=== PATIENT | male | born 1965 | race African-American/Black ===

== ENCOUNTER 2017-08-18 17:37 | Inpatient (IN) | payer OTHER ==
[2017-08-18 18:09] VITALS: BMI 18.3
--- NOTE | 2017-08-18 21:17 | HP ---
CIWA Score - CIWA Score Nausea/Vomitin (Vomiting x 2) Muscle Tremors: 4-Moderate,w/Arms Extend Anxiety: 2 Agitation: 4-Moderately Restless Paroxysmal Sweats: No Perspiration Orientation: 1-Uncertain about Date Tacttile Disturbances: 0-None Auditory Disturbances: 0-None Visual Disturbances: 0-None Headache: 2-Mild CIWA-Ar Total Score: 16 Admission ROS S - HPI Chief Complaint: alcohol withdrawal symptoms Allergies/Adverse Reactions: Allergies Allergy/AdvReac Type Severity Reaction Status Date / Time No Known Allergies Allergy Verified 08/18/17 19:47 History of Present Illness: 52 years old male with a long history of alcohol, marijuana and crack cocaine dependence is seeking admission to detox. Patient reports that his last detox was 2 years ago at [facility] and he has insignificant period of abstinence. He has medical history of Lung Cancer, GERD, hypercholesterolemia, anxiety and depression Exam Limitations: No Limitations - Ebola screening Have you traveled outside of the country in the last 21 days: No Have you had contact with anyone from an Ebola affected area: No Have you been sick,other than usual withdrawal symptoms: No Do you have a fever: No - Review of Systems Constitutional: Chills, Loss of Appetite, Malaise, Night Sweats, Weakness EENT: reports: Blurred Vision (left eye) Respiratory: reports: No Symptoms reported Cardiac: reports: No Symptoms Reported GI: reports: Diarrhea (x 2), Nausea, Poor Appetite, Poor Fluid Intake, Vomiting (x 2), Abdominal cramping : reports: No Symptoms Reported Musculoskeletal: reports: Back Pain Integumentary: reports: Dryness, Flushing Neuro: reports: Tingling, Tremors Endocrine: reports: No Symptoms Reported Hematology: reports: No Symptoms Reported Psychiatric: reports: Agitated, Anxious Other Systems: Reviewed and Negative Patient History - Patient Medical History Hx Anemia: No Hx Asthma: No Hx Chronic Obstructive Pulmonary Disease (COPD): No Hx Cancer: Yes (Lung Cancer - Not on medication now) Hx Cardiac Disorders: No Hx Congestive Heart Failure: No Hx Hypertension: No Hx Hypercholesterolemia: Yes (Not on medication) HX Cerebrovascular Accident: No Hx Seizures: No Hx Diabetes: No Hx Gastrointestinal Disorders: No Hx Liver Disease: No Hx Genitourinary Disorders: Yes (GERD - Not on medication) Hx Sexually Transmitted Disorders: No Hx Renal Disease (ESRD): No Hx Thyroid Disease: No Hx Human Immunodeficiency Virus (HIV): No (Negative 2016) Hx Hepatitis C: No Hx Depression: Yes (Seroquel) Hx Suicide Attempt: No (Denies suicidal and homicidal ideation ) Hx Bipolar Disorder: No Hx Schizophrenia: No Other Medical History: Anxiety - Not on medication - Patient Surgical History Past Surgical History: Yes Hx Neurologic Surgery: No Hx Cataract Extraction: No Hx Cardiac Surgery: No Hx Lung Surgery: No Hx Abdominal Surgery: No Hx Appendectomy: No Hx Cholecystectomy: No Hx Genitourinary Surgery: No Hx Orthopedic Surgery: No Other Surgical History: Removal of right lung 2013 Anesthesia Reaction: No - PPD History Previous Implant?: Yes Documented Results: Negative w/o proof Implanted On Prior [facility] Admission?: No PPD to be Administered?: Yes - Reproductive History Patient is a Female of Child Bearing Age (11 -55 yrs old): No (MALE) - Smoking Cessation Smoking history: Current every day smoker Have you smoked in the past 12 months: Yes Aproximately how many cigarettes per day: 10 Hx Chewing Tobacco Use: No Initiated information on smoking cessation: Yes 'Breaking Loose' booklet given: 08/18/17 - Substance & Tx. History Hx Alcohol Use: Yes Hx Substance Use: Yes Substance Use Type: Cocaine, Marijuana Hx Substance Use Treatment: Yes ([facility]) - Substances Abused Alcohol Route: Oral Frequency: Daily Amount used: LIQUOR- 3 PINTS, BEER- 1 SIX PACK Age of first use: 16 Date of Last Use: 08/18/17 Crack Route: Smoking Frequency: Daily Amount used: 5 BAGS Age of first use: 28 Date of Last Use: 08/17/17 Marijuana/Hashish Route: Smoking Frequency: Daily Amount used: $10 Age of first use: 14 Date of Last Use: 08/18/17 Family Disease History - Family Disease History Family Disease History: CA: Father (Throat Cancer - ), Brother (Stomach cancer - ), Sister (Breast cancer - ) Admission Physical Exam S - Vital Signs Vital Signs: Vital Signs - 24 hr 08/18/17 18:02 Temperature 99.3 F Pulse Rate 105 H Respiratory 18 Rate Blood Pressure 119/70 - Physical General Appearance: Yes: Moderate Distress, Tremorous, Irritable, Sweating, Anxious HEENTM: Yes: EOMI, Normal ENT Inspection, Normal Voice, STEVEN Respiratory: Yes: Lungs Clear, Normal Breath Sounds, No Respiratory Distress Neck: Yes: Supple Breast: Yes: Breast Exam Deferred Cardiology: Yes: Regular Rhythm, Regular Rate, Tachycardia Abdominal: Yes: Normal Bowel Sounds, Soft Genitourinary: Yes: Within Normal Limits Back: Yes: Normal Inspection Extremities: Yes: Tremors Neurological: Yes: Alert, Normal Mood/Affect Integumentary: Yes: Dry Lymphatic: Yes: Within Normal Limits - Diagnostic (1) Alcohol dependence with uncomplicated withdrawal Current Visit: Yes Status: Chronic (2) Cocaine dependence, uncomplicated Current Visit: Yes Status: Chronic (3) Cannabis dependence, uncomplicated Current Visit: Yes Status: Chronic (4) Lung cancer Current Visit: Yes Status: Chronic (5) GERD (gastroesophageal reflux disease) Current Visit: Yes Status: Chronic (6) Hypercholesteremia Current Visit: Yes Status: Chronic (7) Anxiety Current Visit: Yes Status: Chronic (8) Depression Current Visit: Yes Status: Acute Qualifiers: Depression Type: unspecified Qualified Code(s): F32.9 - Major depressive disorder, single episode, unspecified Cleared for Admission [facility] - Detox or Rehab [facility] Level of Care: Medically Managed Detox Regimen/Protocol: Librium [facility] Breath Alcohol Content Breath Alcohol Content: 0.185 Urine Drug Screen - Results Urine Drug Screen Results: THC-Marijuana, JAY-Cocaine
[2017-08-18] MEDS ORDERED: NICOTINE POLACRILEX 2 MG GUM BC PRN (21:30)
[2017-08-18] MEDS ORDERED: IBUPROFEN 400 MG TABLET (FP) PO PRN (21:30)
[2017-08-18] MEDS ORDERED: ACETAMINOPHEN 325 MG TABLET (FP) PO PRN (21:30)
[2017-08-18] MEDS ORDERED: MAGNESIUM HYDROX 2400MG/30ML ORAL SUSPENSION 30 ML CUP PO PRN (21:30)
[2017-08-18] MEDS ORDERED: guaiFENesin/D-METHORPHAN HB 10 ML UNIT-DOSE CUPS PO PRN (21:30)
[2017-08-18] MEDS ORDERED: MAGNESIUM CITRATE 300 ML BOTTLE PO PRN (21:30)
[2017-08-18] MEDS ORDERED: MENTHOL/PHENOL 1 EACH UD MM PRN (21:30)
[2017-08-18] MEDS ORDERED: chlordiazePOXIDE HCL 25 MG CAPSULE PO PRN (21:30)
[2017-08-18] MEDS ORDERED: P-EPHED 60MG/TRIPROLIDI 2.5MG TABLET PO PRN (21:30)
[2017-08-18] MEDS ORDERED: MAG HYDROX/AL HYDROX/SIMETH 30 ML UNIT-DOSE CUP PO PRN (21:30)
[2017-08-18] MEDS ORDERED: LOPERAMIDE HCL 2 MG CAPSULE PO PRN (21:30)
[2017-08-18] MEDS ORDERED: MELATONIN 5 MG TABLETS PO PRN (22:00)
[2017-08-18] MEDS: chlordiazePOXIDE HCL 25 MG CAPSULE PO SCH (22:58)
[2017-08-18] MEDS: THIAMINE HCL 100 MG TABLET (FP) PO SCH (23:11)
[2017-08-19 02:02] LABS: URINE APPEARANCE CLEAR; URINE BILIRUBIN NEGATIVE (<2.0 mg/dL); URINE BLOOD 2+ (NEGATIVE); URINE COLOR LTYELLOW; URINE GLUCOSE (UA) NEGATIVE (NEGATIVE); URINE KETONE NEGATIVE (NEGATIVE); URINE LEUK ESTERASE TRACE (NEGATIVE); URINE NITRITE NEGATIVE (NEGATIVE); URINE PROTEIN NEGATIVE (NEGATIVE); URINE UROBILINOGEN NEGATIVE mg/dL (0.2-1.0)
[2017-08-19 03:30] LABS: URINE BACTERIA RARE /hpf (NONE SEEN); URINE MUCUS FEW
[2017-08-19] MEDS: chlordiazePOXIDE HCL 25 MG CAPSULE PO SCH ×5 (06:15→22:39)
--- NOTE | 2017-08-19 10:04 | CONSULT ---
[facility] Psychiatric Consult - Data Date of interview: 08/19/17 Admission source: [facility] Identifying data: This is 52 years old male, single, homeless, unemployed, on SSI, with psychiatric hospitalization history, with a long history of alcohol, marijuana and crack, cocaine dependence is seeking admission to detox. Substance Abuse History: Smoking history: Current every day smoker. Have you smoked in the past 12 months: Yes. Aproximately how many cigarettes per day: 10. Hx Chewing Tobacco Use: No. Initiated information on smoking cessation: Yes. 'Breaking Loose' booklet given: 08/18/17. - Substance & Tx. History. Hx Alcohol Use: Yes. Hx Substance Use: Yes. Substance Use Type: Cocaine, Marijuana. Hx Substance Use Treatment: Yes ([facility], [facility]). - Substances Abused. Alcohol. Route: Oral. Frequency: Daily. Amount used : LIQUOR- 3 PINTS, BEER- 1 SIX PACK. Age of first use: 16. Date of Last Use: 08/18/17. Crack. Route: Smoking. Frequency: Daily. Amount used: 5 BAGS. Age of first use: 28. Date of Last Use: 08/17/17. Marijuana/Hashish. Route : Smoking. Frequency: Daily. Amount used: $10. Age of first use: 14. Date of Last Use: 08/18/17 Medical History: Patient reports medical history of Lung Cancer, GERD, hypercholesterolemia, and GERD. Psychiatric History: Patient reports history of depression with most recent psychiatric admission on 2016 at [facility] on 2016 for safety. Reports taking prior to admission: Lexapro 20mg poqd. Seroquel 150mg po qhs. Denies suicidal and homicicdal history Mental Status Exam - Mental Status Exam Alert and Oriented to: Person Cognitive Function: Fair Patient Appearance: Unkempt Mood: Sad Affect: Flat Patient Behavior: Cooperative Speech Pattern: Appropriate Voice Loudness: Mildly Soft/Quiet Thought Process: Circumstantial, Goal Oriented Thought Disorder: Being Controlled Hallucinations: Denies Suicidal Ideation: Denies Homicidal Ideation: Denies Insight/Judgement: Fair Sleep: Difficulty falling asleep Appetite: Weight loss Muscle strength/Tone: Normal Gait/Station: Shuffling Additional Comments: Lexapro 20mg poqd. Seroquel 150mg po qhs Psychiatric Findings - Problem List ([place] 1, 2,3) (1) Drug-induced mood disorder Current Visit: Yes Status: Acute (2) Alcohol dependence with uncomplicated withdrawal Current Visit: Yes Status: Chronic (3) Cannabis dependence, uncomplicated Current Visit: Yes Status: Chronic (4) Cocaine dependence, uncomplicated Current Visit: Yes Status: Chronic - Initial Treatment Plan Initial Treatment Plan: Lexapro 20mg poqd. Seroquel 150mg po qhs
[2017-08-19 10:16] LABS: ALBUMIN 3.1 g/dl (3.4-5.0); ANION GAP 7 (8-16); BLOOD UREA NITROGEN 11 mg/dL (7-18); CALCIUM 8.6 mg/dL (8.5-10.1); CHLORIDE 106 mmol/L (98-107); CO2 28 mmol/L (21-32); CREATININE 0.8 mg/dL (0.7-1.3); GLUCOSE,RANDOM 80 mg/dL (74-106); POTASSIUM 3.5 mmol/L (3.5-5.1); SGOT/AST 43 U/L (15-37); SGPT/ALT 16 U/L (12-78); SODIUM 141 mmol/L (136-145)
[2017-08-19 10:18] LABS: ALK PHOS 92 U/L (45-117); BILIRUBIN,TOTAL 0.8 mg/dL (0.2-1.0); TOT PROT 6.2 g/dl (6.4-8.2)
[2017-08-19 10:33] LABS: HEMATOCRIT 35.7 % (35.4-49); HEMOGLOBIN 12.3 GM/dL (11.7-16.9); MCH 36.7 pg (25.7-33.7); MCHC 34.5 g/dl (32.0-35.9); MEAN CELL VOLUME 106.4 fl (80-96); MEAN PLT VOLUME 7.4 fl (7.5-11.1); PLATELET COUNT 323 K/MM3 (134-434); RBC 3.36 M/mm3 (4.00-5.60); RDW 13.4 % (11.9-15.9); WHITE BLOOD COUNT 7.1 K/mm3 (4.0-10.0)
--- NOTE | 2017-08-19 11:01 | PN ---
S CIWA - CIWA Score Nausea/Vomitin Muscle Tremors: 3 Anxiety: 1-Mildly Anxious Agitation: 2 Paroxysmal Sweats: 2 Orientation: 0-Oriented Tacttile Disturbances: 1-Very Mild Itch/Numbness Auditory Disturbances: 0-None Visual Disturbances: 0-None Headache: 1-Very Mild CIWA-Ar Total Score: 12 S Progress Note (SOAP) Subjective: nausea, swets, intyerruted sleep, anxity, trmeos, thirsty Objective: 08/19/17 11:00 Vital Signs - 24 hr 08/18/17 08/18/17 08/19/17 18:02 22:46 00:30 Temperature 99.3 F 96.8 F L Pulse Rate 105 H 104 H Respiratory 18 20 18 Rate Blood Pressure 119/70 132/83 08/19/17 08/19/17 08/19/17 03:30 06:41 10:53 Temperature 97.9 F 98.2 F Pulse Rate 71 108 H Respiratory 18 18 18 Rate Blood Pressure 131/78 152/88 tachycardia Laboratory Tests 08/18/17 08/19/17 08/19/17 23:54 07:30 07:30 WBC 7.1 RBC 3.36 L Hgb 12.3 Hct 35.7 MCV 106.4 H MCH 36.7 H MCHC 34.5 RDW 13.4 Plt Count 323 MPV 7.4 L Sodium 141 Potassium 3.5 Chloride 106 Carbon Dioxide 28 Anion Gap 7 L BUN 11 Creatinine 0.8 Creat Clearance w eGFR > 60 Random Glucose 80 Calcium 8.6 Total Bilirubin 0.8 AST 43 H ALT 16 Alkaline Phosphatase 92 Total Protein 6.2 L Albumin 3.1 L Urine Color Ltyellow Urine Appearance Clear Urine pH 6.0 Ur Specific [place] 1.008 Urine Protein Negative Urine Glucose (UA) Negative Urine Ketones Negative Urine Blood 2+ H Urine Nitrite Negative Urine Bilirubin Negative Urine Urobilinogen Negative Ur Leukocyte Esterase Trace Urine WBC (Auto) 2 Urine RBC (Auto) None Urine Bacteria Rare Urine Mucus Few macrocytosis, hypoalbuminemia Assessment: 08/19/17 11:01 withdrawal sx - cont detox, fluids, ensure, encourage ambuatlltion
[2017-08-19] MEDS: PRENATAL VITAMINS W/ FOLIC ACID TABLET (FP) PO SCH (11:05)
[2017-08-19] MEDS: ESCITALOPRAM OXALATE 20 MG TABLET (FP) PO SCH (11:06)
[2017-08-19] MEDS: NICOTINE 14 MG/24 HOURS TOPICAL PATCH TD SCH (11:06)
--- NOTE | 2017-08-19 12:59 | EKG ---
Test Reason : Blood Pressure : / mmHG Vent. Rate : 098 BPM Atrial Rate : 098 BPM P-R Int : 126 ms QRS Dur : 074 ms QT Int : 394 ms P-R-T Axes : 078 074 080 degrees QTc Int : 503 ms NORMAL SINUS RHYTHM POSSIBLE LEFT ATRIAL ENLARGEMENT PROLONGED QT ABNORMAL ECG NO PREVIOUS ECGS AVAILABLE Confirmed by DOMINIK CISSE MD ([id number]) on 08/19/2017 12:59:22 PM Referred By: Confirmed By:DOMINIK CISSE MD
--- NOTE | 2017-08-19 13:01 | EKG ---
Test Reason : Blood Pressure : / mmHG Vent. Rate : 083 BPM Atrial Rate : 083 BPM P-R Int : 118 ms QRS Dur : 082 ms QT Int : 330 ms P-R-T Axes : 075 077 085 degrees QTc Int : 387 ms NORMAL SINUS RHYTHM NONSPECIFIC T WAVE ABNORMALITY ABNORMAL ECG WHEN COMPARED WITH ECG OF 18-AUG-2017 22:47, NONSPECIFIC T WAVE ABNORMALITY NOW EVIDENT IN INFERIOR LEADS NONSPECIFIC T WAVE ABNORMALITY, WORSE IN LATERAL LEADS QT HAS SHORTENED Confirmed by TANNA GONGORA, DOMINIK ([id number]) on 08/19/2017 1:00:55 PM Referred By: Confirmed By:DOMINIK CISSE MD
[2017-08-19] MEDS: QUEtiapine FUMARATE 50 MG TABLET PO SCH (22:39)
[2017-08-19] MEDS: THIAMINE HCL 100 MG TABLET (FP) PO SCH (22:40)
[2017-08-20] MEDS: chlordiazePOXIDE HCL 25 MG CAPSULE PO SCH ×3 (05:24→18:04)
[2017-08-20] MEDS: ESCITALOPRAM OXALATE 20 MG TABLET (FP) PO SCH (10:13)
[2017-08-20] MEDS: PRENATAL VITAMINS W/ FOLIC ACID TABLET (FP) PO SCH (10:13)
[2017-08-20] MEDS: NICOTINE 14 MG/24 HOURS TOPICAL PATCH TD SCH (10:15)
--- NOTE | 2017-08-20 14:38 | PN ---
S CIWA - CIWA Score Nausea/Vomitin Muscle Tremors: 2 Anxiety: 3 Agitation: 2 Paroxysmal Sweats: 2 Orientation: 0-Oriented Tacttile Disturbances: 1-Very Mild Itch/Numbness Auditory Disturbances: 0-None Visual Disturbances: 0-None Headache: 1-Very Mild CIWA-Ar Total Score: 13 S Progress Note (SOAP) Subjective: nausea, sweats, interrupted sleep, anxiety, tremors Objective: 08/20/17 14:37 Vital Signs - 24 hr 08/19/17 08/19/17 08/19/17 14:56 17:13 21:49 Temperature 98.1 F 97.9 F 100.8 F H Pulse Rate 69 103 H 87 Respiratory 18 20 18 Rate Blood Pressure 106/70 155/70 148/77 08/20/17 08/20/17 08/20/17 00:30 03:30 06:00 Temperature 97.2 F L Pulse Rate 76 Respiratory 18 18 16 Rate Blood Pressure 120/79 08/20/17 10:00 Temperature 96.7 F L Pulse Rate 97 H Respiratory 18 Rate Blood Pressure 127/77 Laboratory Tests 08/18/17 08/19/17 08/19/17 23:54 07:30 07:30 WBC 7.1 RBC 3.36 L Hgb 12.3 Hct 35.7 MCV 106.4 H MCH 36.7 H MCHC 34.5 RDW 13.4 Plt Count 323 MPV 7.4 L Sodium 141 Potassium 3.5 Chloride 106 Carbon Dioxide 28 Anion Gap 7 L BUN 11 Creatinine 0.8 Creat Clearance w eGFR > 60 Random Glucose 80 Calcium 8.6 Total Bilirubin 0.8 AST 43 H ALT 16 Alkaline Phosphatase 92 Total Protein 6.2 L Albumin 3.1 L Urine Color Ltyellow Urine Appearance Clear Urine pH 6.0 Ur Specific [place] 1.008 Urine Protein Negative Urine Glucose (UA) Negative Urine Ketones Negative Urine Blood 2+ H Urine Nitrite Negative Urine Bilirubin Negative Urine Urobilinogen Negative Ur Leukocyte Esterase Trace Urine WBC (Auto) 2 Urine RBC (Auto) None Urine Bacteria Rare Urine Mucus Few RPR Titer 08/19/17 07:30 WBC RBC Hgb Hct MCV MCH MCHC RDW Plt Count MPV Sodium Potassium Chloride Carbon Dioxide Anion Gap BUN Creatinine Creat Clearance w eGFR Random Glucose Calcium Total Bilirubin AST ALT Alkaline Phosphatase Total Protein Albumin Urine Color Urine Appearance Urine pH Ur Specific [place] Urine Protein Urine Glucose (UA) Urine Ketones Urine Blood Urine Nitrite Urine Bilirubin Urine Urobilinogen Ur Leukocyte Esterase Urine WBC (Auto) Urine RBC (Auto) Urine Bacteria Urine Mucus RPR Titer Nonreactive Assessment: 08/20/17 14:37 withdrawal sx - cont detox, fluids, ensure,
[2017-08-20] MEDS: THIAMINE HCL 100 MG TABLET (FP) PO SCH (22:30)
[2017-08-20] MEDS: QUEtiapine FUMARATE 50 MG TABLET PO SCH (22:30)
[2017-08-20] MEDS: chlordiazePOXIDE 5 MG CAPSULE PO SCH (22:31)
[2017-08-21] MEDS: chlordiazePOXIDE 5 MG CAPSULE PO SCH ×3 (05:54→17:23)
--- NOTE | 2017-08-21 10:19 | PN ---
[facility] Progress Note (SOAP) Subjective: interrupted sleep, sweats, shakes, lbp Objective: 08/21/17 10:18 Vital Signs Temperature 97.5 F L 08/21/17 06:00 Pulse Rate 89 08/21/17 06:00 Respiratory Rate 16 08/21/17 06:00 Blood Pressure 97/68 08/21/17 06:00 O2 Sat by Pulse Oximetry (%) Laboratory Tests 08/18/17 08/19/17 08/19/17 23:54 07:30 07:30 WBC 7.1 RBC 3.36 L Hgb 12.3 Hct 35.7 MCV 106.4 H MCH 36.7 H MCHC 34.5 RDW 13.4 Plt Count 323 MPV 7.4 L Sodium 141 Potassium 3.5 Chloride 106 Carbon Dioxide 28 Anion Gap 7 L BUN 11 Creatinine 0.8 Creat Clearance w eGFR > 60 Random Glucose 80 Calcium 8.6 Total Bilirubin 0.8 AST 43 H ALT 16 Alkaline Phosphatase 92 Total Protein 6.2 L Albumin 3.1 L Urine Color Ltyellow Urine Appearance Clear Urine pH 6.0 Ur Specific [place] 1.008 Urine Protein Negative Urine Glucose (UA) Negative Urine Ketones Negative Urine Blood 2+ H Urine Nitrite Negative Urine Bilirubin Negative Urine Urobilinogen Negative Ur Leukocyte Esterase Trace Urine WBC (Auto) 2 Urine RBC (Auto) None Urine Bacteria Rare Urine Mucus Few RPR Titer 08/19/17 07:30 WBC RBC Hgb Hct MCV MCH MCHC RDW Plt Count MPV Sodium Potassium Chloride Carbon Dioxide Anion Gap BUN Creatinine Creat Clearance w eGFR Random Glucose Calcium Total Bilirubin AST ALT Alkaline Phosphatase Total Protein Albumin Urine Color Urine Appearance Urine pH Ur Specific [place] Urine Protein Urine Glucose (UA) Urine Ketones Urine Blood Urine Nitrite Urine Bilirubin Urine Urobilinogen Ur Leukocyte Esterase Urine WBC (Auto) Urine RBC (Auto) Urine Bacteria Urine Mucus RPR Titer Nonreactive pt aox3 in nad ambulatng Assessment: 08/21/17 10:18 withdrawal sxs Plan: cont. detox increase fluids d/c in am
[2017-08-21] MEDS: NICOTINE 14 MG/24 HOURS TOPICAL PATCH TD SCH (11:04)
[2017-08-21] MEDS: PRENATAL VITAMINS W/ FOLIC ACID TABLET (FP) PO SCH (11:04)
[2017-08-21] MEDS: ESCITALOPRAM OXALATE 20 MG TABLET (FP) PO SCH (11:04)
[2017-08-21] MEDS: QUEtiapine FUMARATE 50 MG TABLET PO SCH (22:25)
[2017-08-21] MEDS: chlordiazePOXIDE HCL 10 MG CAPSULE PO SCH (22:25)
[2017-08-21] MEDS: THIAMINE HCL 100 MG TABLET (FP) PO SCH (22:25)
[2017-08-22] MEDS: chlordiazePOXIDE HCL 10 MG CAPSULE PO SCH ×2 (05:50→10:25)
[2017-08-22] MEDS: PRENATAL VITAMINS W/ FOLIC ACID TABLET (FP) PO SCH (10:24)
[2017-08-22] MEDS: NICOTINE 14 MG/24 HOURS TOPICAL PATCH TD SCH (10:25)
[2017-08-22] MEDS: ESCITALOPRAM OXALATE 20 MG TABLET (FP) PO SCH (10:25)
--- NOTE | 2017-08-22 11:12 | PN ---
S Progress Note (SOAP) Subjective: ALERT,NO COMPLAINT Objective: 08/22/17 11:10 Vital Signs Temperature 97.5 F L 08/22/17 06:54 Pulse Rate 96 H 08/22/17 06:54 Respiratory Rate 18 08/22/17 06:54 Blood Pressure 97/67 08/22/17 06:54 O2 Sat by Pulse Oximetry (%) Assessment: 08/22/17 11:10 DETOX COMPLETED,NO WITHDRAWAL SYMPTOM Plan: DISCHARGE TODAY,FOLLOW UP WITH AFTER CARE CARE PROGRAM ARRANGEMENT
[2017-08-22 11:22] VITALS: BP 80/53; PULSE 101; TEMP 97.9
--- NOTE | 2017-08-22 11:39 | DS ---
[facility] Detox Discharge Summary Admission Date: 08/18/17 Discharge Date: 08/22/17 - History Present History: Alcohol Dependence, Cannabis Dependence, Cocaine Dependence Additional Comments: FOLLOW UP WITH AFTER CARE PROGRAM ARRANGEMENT Pertinent Past History: GERD HYPERCHOLESTEROLEMIA LUNG CANCER - Physical Exam Results Vital Signs: Vital Signs Temperature 97.9 F 08/22/17 11:22 Pulse Rate 101 H 08/22/17 11:22 Respiratory Rate 18 08/22/17 11:22 Blood Pressure 80/53 08/22/17 11:22 O2 Sat by Pulse Oximetry (%) Pertinent Admission Physical Exam Findings: WITHDRAWAL SIGNS AND SYMPTOM Vital Signs Temperature 97.9 F 08/22/17 11:22 Pulse Rate 101 H 08/22/17 11:22 Respiratory Rate 18 08/22/17 11:22 Blood Pressure 80/53 08/22/17 11:22 O2 Sat by Pulse Oximetry (%) Laboratory Last Values WBC 7.1 K/mm3 (4.0-10.0) 08/19/17 07:30 RBC 3.36 M/mm3 (4.00-5.60) L 08/19/17 07:30 Hgb 12.3 GM/dL (11.7-16.9) 08/19/17 07:30 Hct 35.7 % (35.4-49) 08/19/17 07:30 MCV 106.4 fl (80-96) H 08/19/17 07:30 MCH 36.7 pg (25.7-33.7) H 08/19/17 07:30 MCHC 34.5 g/dl (32.0-35.9) 08/19/17 07:30 RDW 13.4 % (11.9-15.9) 08/19/17 07:30 Plt Count 323 K/MM3 (134-434) 08/19/17 07:30 MPV 7.4 fl (7.5-11.1) L 08/19/17 07:30 Sodium 141 mmol/L (136-145) 08/19/17 07:30 Potassium 3.5 mmol/L (3.5-5.1) 08/19/17 07:30 Chloride 106 mmol/L (98-107) 08/19/17 07:30 Carbon Dioxide 28 mmol/L (21-32) 08/19/17 07:30 Anion Gap 7 (8-16) L 08/19/17 07:30 BUN 11 mg/dL (7-18) 08/19/17 07:30 Creatinine 0.8 mg/dL (0.7-1.3) 08/19/17 07:30 Creat Clearance w eGFR > 60 (>60) 08/19/17 07:30 Random Glucose 80 mg/dL (74-106) 08/19/17 07:30 Calcium 8.6 mg/dL (8.5-10.1) 08/19/17 07:30 Total Bilirubin 0.8 mg/dL (0.2-1.0) 08/19/17 07:30 AST 43 U/L (15-37) H 08/19/17 07:30 ALT 16 U/L (12-78) 08/19/17 07:30 Alkaline Phosphatase 92 U/L (45-117) 08/19/17 07:30 Total Protein 6.2 g/dl (6.4-8.2) L 08/19/17 07:30 Albumin 3.1 g/dl (3.4-5.0) L 08/19/17 07:30 Urine Color Ltyellow 08/18/17 23:54 Urine Appearance Clear 08/18/17 23:54 Urine pH 6.0 (5.0-8.0) 08/18/17 23:54 Ur Specific [place] 1.008 (1.001-1.035) 08/18/17 23:54 Urine Protein Negative (NEGATIVE) 08/18/17 23:54 Urine Glucose (UA) Negative (NEGATIVE) 08/18/17 23:54 Urine Ketones Negative (NEGATIVE) 08/18/17 23:54 Urine Blood 2+ (NEGATIVE) H 08/18/17 23:54 Urine Nitrite Negative (NEGATIVE) 08/18/17 23:54 Urine Bilirubin Negative (<2.0 mg/dL) 08/18/17 23:54 Urine Urobilinogen Negative mg/dL (0.2-1.0) 08/18/17 23:54 Ur Leukocyte Esterase Trace (NEGATIVE) 08/18/17 23:54 Urine WBC (Auto) 2 /hpf (3-5) 08/18/17 23:54 Urine RBC (Auto) None /hpf (0-3) 08/18/17 23:54 Urine Bacteria Rare /hpf (NONE SEEN) 08/18/17 23:54 Urine Mucus Few 08/18/17 23:54 RPR Titer Nonreactive (NONREACTIVE) 08/19/17 07:30 - Treatment Hospital Course: Detox Protocol Followed, Detoxed Safely, Responded well, Discharged Condition Good, Rehab Referral Accepted Patient has Accepted a Rehab Referral to: [facility] - Medication Discharge Medications: Ambulatory Orders Escitalopram Oxalate [Lexapro -] 20 mg PO DAILY #30 tablet 08/19/17 Quetiapine Fumarate [Seroquel] 150 mg PO HS #30 tablet 08/19/17 - Diagnosis (1) Alcohol dependence with uncomplicated withdrawal Current Visit: Yes Status: Chronic (2) Drug-induced mood disorder Current Visit: Yes Status: Acute (3) Cannabis dependence, uncomplicated Current Visit: Yes Status: Chronic (4) Cocaine dependence, uncomplicated Current Visit: Yes Status: Chronic (5) GERD (gastroesophageal reflux disease) Current Visit: Yes Status: Chronic (6) Hypercholesteremia Current Visit: Yes Status: Chronic (7) Lung cancer Current Visit: Yes Status: Chronic - AMA Did Patient Leave Against Medical Advice: No
== END 2017-08-22 10:26 | disposition home or self-care (01) | DRG 774 ==
LOC: YASAS 17:37 → Y6N 20:23
PROVIDERS: ADMIT Internal Medicine; ATTEND Internal Medicine
PROC: HZ2ZZZZ Detoxification Services for Substance Abuse Treatment (ICD-10-PCS; principal; 2017-08-18)
DX: F10.230 Alcohol dependence with withdrawal, uncomplicated (principal); F14.20 Cocaine dependence, uncomplicated; F12.20 Cannabis dependence, uncomplicated; F17.210 Nicotine dependence, cigarettes, uncomplicated; F19.24 Other psychoactive substance dependence with psychoactive substance-induced mood disorder; F41.9 Anxiety disorder, unspecified; F32.9 Major depressive disorder, single episode, unspecified; K21.9 Gastro-esophageal reflux disease without esophagitis; E78.00 Pure hypercholesterolemia, unspecified; R00.0 Tachycardia, unspecified; C34.90 Malignant neoplasm of unspecified part of unspecified bronchus or lung; D75.89 Other specified diseases of blood and blood-forming organs; E88.09 Other disorders of plasma-protein metabolism, not elsewhere classified
CPT/HCPCS: 36415; 80053; 81003; 81015; 85027; 86593; 93005; 93010